=== PATIENT | male | born 1955 | race Caucasian/White ===

== ENCOUNTER → 2016-12-13 | Day surgery (SDC) | payer OTHER ==
[~2016-12-13] MED LIST: MUCINEX600 M1 PO; NASONEX17 GM; NORVASC5 M1; ZYRTEC10 M3
--- NOTE | 2016-12-13 08:59 | Operative Report ---
Operative/Inv Procedure Report Surgery Date: 12/13/16 Name of Procedure: Hemorrhoidectomy, 3 column complete Pre-Operative Diagnosis: 1. Grade 4 internal hemorrhoids 2. Symptomatic external hemorrhoids Post-Operative Diagnosis: Same Estimated Blood Loss: scant Surgeon/President Ceo & Founder: SOBIA PITTS JR, DO Anesthesia: local monitored anesthesi, block Monitors: Per routine Drains: None Specimens: 1. Anal tags 2. Hemorrhoids 3 Complications: None Condition: Good Operative Indication: This is a 61-year-old gentleman with a long-standing hemorrhoid problems. He has grade 4 internal hemorrhoids and large external hemorrhoids. He has symptoms related to both his internal and external hemorrhoids. Based on his anatomy and distribution of disease the only good option he had for treatment with surgical excision. So after obtaining of informed consent patient was scheduled for surgery Operative/Procedure Note Note: The patient was taken into the operating room he was placed awake on the operating room table in the prone jackknife position. Once the patient was comfortable IV sedation was initiated. Once the patient was well sedated the gluteal cleft was taped in the abducted position. Next the perineum was prepped and draped in usual fashion. A block was performed with 0.5% Marcaine with epinephrine. Total of 30 mL was injected to complete the block. Gentle digital exam was performed and then a Fansler operating proximal scope was placed into the anal canal. There was a small amount of stool is copiously irrigated and aspirated away. The retractor was aligned with the left lateral hemorrhoid column. This was his largest hemorrhoid column. An elliptical incision was carried out around the hemorrhoid starting at the hemorrhoid pedicle in the rectum and coming out into the anal margin skin. The skin was then grasped and sharp dissection was performed until I was able to identify fibers of the internal anal sphincter. The space between the hemorrhoid complex in the internal hemorrhoids was bluntly developed making sure to not injure the muscle. The remainder of the hemorrhoid tissue was then ligated and divided with the LigaSure device. A [id number] 2-0 Vicryl was placed at the level of the hemorrhoid pedicle to ensure hemostasis. The mucosa was closed with a running locking 3-0 Vicryl suture to the level of the anal verge. A small portion of the incision was left open to drain in the anal margin. The retractor was realigned and the same exact steps were carried out for the hemorrhoid cushion first at the right anterior position and then at the right posterior position. There was a small about 3-4 mm in tag in the anterior midline just at the anal verge. This was sharply excised and sent as additional specimen. At this point I inspected for hemostasis which was excellent. So the procedure was concluded. The perineum was cleansed and dried. Bacitracin ointment and a bulky dressing was applied. The patient was converted to the supine position and tolerated the procedure well. He was taken in good condition to the recovery room. At the end of this case all sponges and needles and measurements were accounted for. Discharge Disposition: PACU
== END ==
LOC: STS 02:36
DX: K64.3 Fourth degree hemorrhoids (principal); K64.8 Other hemorrhoids; I10 Essential (primary) hypertension
CPT/HCPCS: 88304; 88305; J0131; J1885; J2250